=== PATIENT | female | born 1980 | race African-American/Black ===

== ENCOUNTER 2017-01-07 08:39 | Emergency (ER) | payer BC, OTHER ==
[~2017-01-07] VITALS: Ht 172.7 cm; Wt 79.4 kg
[2017-01-07 09:41] LABS: EOSINOPHIL (%) 3.1 % (0-5); EOSINOPHIL COUNT 0.2 K/uL (0-0.3); HEMATOCRIT 39.9 % (36.0-46.0); IMMATURE GRANULOCYTE (%) 0.2 % (0.0-0.7); INSTRUMENT ABS NEUTROPHIL CT 3.5 K/uL; LYMPHOCYTE COUNT 1.5 K/uL (1.0-2.8); MCH 29.3 PG (29.0-34.0); MCHC 33.6 G/DL (30.0-36.0); MCV 87.1 FL (83-99); MONOCYTE (%) 6.7 % (3-12); MONOCYTE COUNT 0.4 K/uL (0-0.8); NEUTROPHIL (%) 62.1 % (45-76); NEUTROPHIL COUNT 3.5 K/uL (1.8-6.4); PLATELET COUNT 220 K/uL (156-360); RBC DIS.WIDTH-CV 13.1 % (11.8-14.6); RBC DIS.WIDTH-SD 40.9 % (39-53); RED BLOOD COUNT 4.58 M/uL (3.80-5.20); WHITE BLOOD COUNT 5.6 K/uL (4.1-10.2)
[2017-01-07 09:53] LABS: CHLORIDE 108 mEq/L (99-109); SODIUM 140 mEq/L (136-147)
[2017-01-07 09:55] LABS: GLUCOSE 92 mg/dL (70-99)
[2017-01-07 09:56] LABS: ANION GAP 7 MEQ/L (2-14)
[2017-01-07 09:59] LABS: GFR ESTIMATE (CALCULATED) > 59 mL/min/; UREA NITROGEN (BUN) 10 mg/dL (9-23)
[2017-01-07 10:07] LABS: QUANTITATIVE HCG 8402.6 MIU/ML
[2017-01-07 10:15] LABS: ADD MIUA? YES; BILIRUBIN NEGATIVE; BLOOD LARGE; COLOR STRAW ((YELLOW)); GLUCOSE (STRIP) NEGATIVE; KETONES NEGATIVE; LEUKOCYTES NEGATIVE; NITRITE NEGATIVE; PROTEIN (STRIP) NEGATIVE; SPECIFIC GRAVITY 1.008 (1.000-1.030); UROBILINOGEN 0.2 MG/DL (0.2-1.0)
[2017-01-07 10:20] LABS: BACTERIA NONE SEEN /HPF; EPITHELIAL CELLS RARE /HPF; MUCUS NONE SEEN /LPF; RED BLOOD CELLS 0-5 /HPF (0-5); WHITE BLOOD CELLS 0-5 /HPF (0-5)
[2017-01-07 14:09] VITALS: BP 125/92
== END 2017-01-07 14:10 | disposition home or self-care (01) ==
LOC: EME 08:39
PROVIDERS: Emergency Medicine
DX: O26.851 Spotting complicating pregnancy, first trimester (principal); R10.30 Lower abdominal pain, unspecified; R10.2 Pelvic and perineal pain; O09.521 Supervision of elderly multigravida, first trimester
CPT/HCPCS: 76801; 80048; 81003; 84702; 85025; 86900; 86901; 93005; 99281; 99285

== ENCOUNTER 2017-01-15 16:39 | Emergency (ER) | payer OTHER ==
[~2017-01-15] VITALS: Ht 160 cm; Wt 79.4 kg
[2017-01-15 17:13] LABS: ADD MIUA? YES; BILIRUBIN NEGATIVE; BLOOD SMALL; COLOR YELLOW ((YELLOW)); GLUCOSE (STRIP) NEGATIVE; KETONES NEGATIVE; LEUKOCYTES TRACE; NITRITE NEGATIVE; PROTEIN (STRIP) NEGATIVE; SPECIFIC GRAVITY 1.017 (1.000-1.030); UROBILINOGEN 0.2 MG/DL (0.2-1.0)
[2017-01-15 17:16] LABS: BACTERIA NONE SEEN /HPF; EPITHELIAL CELLS RARE /HPF; MUCUS NONE SEEN /LPF; RED BLOOD CELLS 0-5 /HPF (0-5); UCUL ADDED? NO; WHITE BLOOD CELLS 0-5 /HPF (0-5)
[2017-01-15 17:23] LABS: HEMATOCRIT 37.9 % (36.0-46.0); MCH 28.9 PG (29.0-34.0); MCV 87.7 FL (83-99); MEAN PLAT.VOLUME 10.4 uM^3 (9.5-12.4); PLATELET COUNT 230 K/uL (156-360); RBC DIS.WIDTH-CV 12.9 % (11.8-14.6); RBC DIS.WIDTH-SD 41.5 % (39-53); RED BLOOD COUNT 4.32 M/uL (3.80-5.20); WHITE BLOOD COUNT 4.7 K/uL (4.1-10.2)
[2017-01-15 17:33] LABS: CHLORIDE 109 mEq/L (99-109); POTASSIUM 3.5 mEq/L (3.7-5.4); SODIUM 141 mEq/L (136-147)
[2017-01-15 17:35] LABS: GLUCOSE 80 mg/dL (70-99)
[2017-01-15 17:37] LABS: ANION GAP 12 MEQ/L (2-14); TOTAL BILIRUBIN 0.6 mg/dL (0.0-1.0)
[2017-01-15 17:39] LABS: ALKALINE PHOSPHATASE 55 IU/L (3-129); GFR ESTIMATE (CALCULATED) > 59 mL/min/
[2017-01-15 17:40] LABS: UREA NITROGEN (BUN) 15 mg/dL (9-23)
[2017-01-15 17:48] LABS: QUANTITATIVE HCG 197.5 MIU/ML
[2017-01-15 21:59] VITALS: BP 140/100
== END 2017-01-15 22:05 | disposition home or self-care (01) ==
LOC: EME 16:39
DX: M25.561 Pain in right knee (principal); O03.9 Complete or unspecified spontaneous abortion without complication; I10 Essential (primary) hypertension
CPT/HCPCS: 73564; 80053; 81003; 84702; 85027; 93971; 99281; 99284

== ENCOUNTER 2017-05-13 11:25 | Emergency (ER) | payer OTHER ==
[~2017-05-13] VITALS: Ht 167.6 cm; Wt 82.5 kg
[2017-05-13] MEDS ORDERED: VENTOLIN HFA18 GM IH (14:07)
[2017-05-13] MEDS ORDERED: FLONASE16 G1 BOTH NARES (14:08)
[2017-05-13 14:21] VITALS: BP 121/83
== END 2017-05-13 14:22 | disposition home or self-care (01) ==
LOC: EME 11:25
DX: O99.89 Other specified diseases and conditions complicating pregnancy, childbirth and the puerperium (principal); J06.9 Acute upper respiratory infection, unspecified; O99.511 Diseases of the respiratory system complicating pregnancy, first trimester; J32.9 Chronic sinusitis, unspecified; O16.1 Unspecified maternal hypertension, first trimester; Z3A.11 11 weeks gestation of pregnancy
CPT/HCPCS: 99281; 99284

== ENCOUNTER 2017-11-07 17:09 | Inpatient (IN) | payer OTHER ==
[2017-11-07 17:05] VITALS: BP 142/80
[~2017-11-07 17:09] MED LIST: FLONASE16 G1 BOTH NARES; VENTOLIN HFA18 GM IH
[2017-11-07] MEDS ORDERED: ASPIRIN325 MG PO (18:07)
[2017-11-07] MEDS ORDERED: TYLENOL REGULA325 MG PO (18:08)
[2017-11-07] MEDS ORDERED: ONE DAILY WITH1 EACH PO (18:11)
[2017-11-07 18:20] LABS: BASOPHIL (%) 0.4 % (0-1); EOSINOPHIL COUNT 0.1 K/uL (0-0.3); HEMOGLOBIN 9.8 G/DL (11.9-15.5); IMMATURE GRANULOCYTE (%) 0.4 % (0.0-0.7); LYMPHOCYTE COUNT 1.2 K/uL (1.0-2.8); MCH 25.8 PG (29.0-34.0); MCHC 31.6 G/DL (30.0-36.0); MCV 81.6 FL (83-99); MONOCYTE (%) 9.2 % (3-12); MONOCYTE COUNT 0.7 K/uL (0-0.8); PLATELET COUNT 257 K/uL (156-360); RBC DIS.WIDTH-CV 13.7 % (11.8-14.6); RBC DIS.WIDTH-SD 40.2 % (39-53); WHITE BLOOD COUNT 8.1 K/uL (4.1-10.2)
[2017-11-07 18:24] VITALS: BP 139/82
[2017-11-07 18:30] LABS: ALBUMIN 3.2 G/DL (3.2-4.8); CHLORIDE 106 MEQ/L (99-109); POTASSIUM 3.4 MEQ/L (3.7-5.4); SODIUM 138 MEQ/L (136-147); TOTAL BILIRUBIN 0.5 MG/DL (0.0-1.0)
[2017-11-07 18:35] LABS: ALKALINE PHOSPHATASE 141 IU/L (3-129); ALT (GPT) 8 IU/L (3-49); AST (GOT) 12 IU/L (2-34); CREATININE 0.7 MG/DL (0.6-1.3); GFR ESTIMATE (CALCULATED) > 59 mL/min/; GLUCOSE 110 mg/dL (70-99); TOTAL PROTEIN 6.4 G/DL (6.4-8.3); UREA NITROGEN (BUN) 10 mg/dL (9-23)
[2017-11-07 19:18] LABS: APPEARANCE CLEAR ((CLEAR)); BILIRUBIN NEGATIVE; BLOOD NEGATIVE; COLOR STRAW ((YELLOW)); GLUCOSE (STRIP) NEGATIVE; KETONES NEGATIVE; LEUKOCYTES NEGATIVE; NITRITE NEGATIVE; PROTEIN (STRIP) NEGATIVE; SPECIFIC GRAVITY 1.006 (1.000-1.030); UCUL ADDED? NO; UROBILINOGEN 0.2 MG/DL (0.2-1.0)
[2017-11-07 20:11] VITALS: BP 151/97
[2017-11-07 20:43] VITALS: BP 142/94
[2017-11-07 21:05] VITALS: BP 161/96
[2017-11-07 23:35] VITALS: BP 124/81
[2017-11-08] VITALS (42 sets, daily range): BP systolic 114–167; BP diastolic 68–104
[2017-11-08 08:22] LABS: HEMATOCRIT 31.3 % (36.0-46.0); HEMOGLOBIN 10.1 G/DL (11.9-15.5); MCH 26.2 PG (29.0-34.0); MCHC 32.3 G/DL (30.0-36.0); MCV 81.1 FL (83-99); PLATELET COUNT 249 K/uL (156-360); RBC DIS.WIDTH-CV 13.9 % (11.8-14.6); RBC DIS.WIDTH-SD 40.5 % (39-53); RED BLOOD COUNT 3.86 M/uL (3.80-5.20); WHITE BLOOD COUNT 6.3 K/uL (4.1-10.2)
[2017-11-08 08:41] LABS: ALKALINE PHOSPHATASE 124 IU/L (3-129); ALT (GPT) 9 IU/L (3-49); AST (GOT) 14 IU/L (2-34); CHLORIDE 106 MEQ/L (99-109); CREATININE 0.5 MG/DL (0.6-1.3); GFR ESTIMATE (CALCULATED) > 59 mL/min/; GLUCOSE 106 mg/dL (70-99); POTASSIUM 3.8 MEQ/L (3.7-5.4); SODIUM 137 MEQ/L (136-147); TOTAL BILIRUBIN 0.7 MG/DL (0.0-1.0); TOTAL PROTEIN 5.8 G/DL (6.4-8.3); UREA NITROGEN (BUN) 7 mg/dL (9-23)
[2017-11-09] VITALS (12 sets, daily range): BP systolic 117–145; BP diastolic 69–93
[2017-11-09 06:45] LABS: BASOPHIL (%) 0.4 % (0-1); EOSINOPHIL (%) 2.6 % (0-5); EOSINOPHIL COUNT 0.2 K/uL (0-0.3); HEMATOCRIT 30.2 % (36.0-46.0); HEMOGLOBIN 9.7 G/DL (11.9-15.5); IMMATURE GRANULOCYTE (%) 0.4 % (0.0-0.7); LYMPHOCYTE (%) 18.8 % (15-42); LYMPHOCYTE COUNT 1.5 K/uL (1.0-2.8); MCH 25.8 PG (29.0-34.0); MCHC 32.1 G/DL (30.0-36.0); MCV 80.3 FL (83-99); MONOCYTE (%) 9.3 % (3-12); MONOCYTE COUNT 0.7 K/uL (0-0.8); NEUTROPHIL (%) 68.5 % (45-76); NEUTROPHIL COUNT 5.3 K/uL (1.8-6.4); PLATELET COUNT 219 K/uL (156-360); RBC DIS.WIDTH-SD 40.9 % (39-53); RED BLOOD COUNT 3.76 M/uL (3.80-5.20); WHITE BLOOD COUNT 7.8 K/uL (4.1-10.2)
[2017-11-10] VITALS (8 sets, daily range): BP systolic 134–157; BP diastolic 78–103
[2017-11-10] MEDS ORDERED: FERROUS SULFAT325 MG PO (09:20)
[2017-11-10] MEDS ORDERED: IBUPROFEN800 MG PO (09:42)
[2017-11-10] MEDS ORDERED: CAMILA0.35 MG PO (09:42)
[2017-11-11 04:00] VITALS: BP 140/89
[2017-11-11 07:02] VITALS: BP 131/72
[2017-11-11 11:08] VITALS: BP 136/79
[2017-11-11 14:53] VITALS: BP 126/73
[2017-11-11] MEDS ORDERED: NIFEDIPINE ER30 MG PO (16:43)
== END 2017-11-11 17:37 | disposition home or self-care (01) | DRG 775 ==
LOC: LDRP-OP 17:09 → 2WEST 17:10
PROVIDERS: Advanced Practice Midwife; Obstetrics & Gynecology
PROC: 3E0R3BZ Introduction of Anesthetic Agent into Spinal Canal, Percutaneous Approach (ICD-10-PCS; principal; 2017-11-08)
PROC: 10E0XZZ Delivery of Products of Conception, External Approach (ICD-10-PCS; principal; 2017-11-08)
PROC: 00HU33Z Insertion of Infusion Device into Spinal Canal, Percutaneous Approach (ICD-10-PCS; principal; 2017-11-08)
PROC: 3E033VJ Introduction of Other Hormone into Peripheral Vein, Percutaneous Approach (ICD-10-PCS; principal; 2017-11-08)
PROC: 10907ZC Drainage of Amniotic Fluid, Therapeutic from Products of Conception, Via Natural or Artificial Opening (ICD-10-PCS; principal; 2017-11-08)
DX: O14.14 Severe pre-eclampsia complicating childbirth (principal); O99.52 Diseases of the respiratory system complicating childbirth; Z3A.37 37 weeks gestation of pregnancy; Z37.0 Single live birth; J45.909 Unspecified asthma, uncomplicated; O99.02 Anemia complicating childbirth; O99.214 Obesity complicating childbirth; O09.523 Supervision of elderly multigravida, third trimester; D64.9 Anemia, unspecified; I10 Essential (primary) hypertension; Z68.27 Body mass index [BMI] 27.0-27.9, adult; E66.9 Obesity, unspecified
CPT/HCPCS: 80053; 81003; 82570; 82575; 83735; 84156; 84550; 85025; 85027; 86850; 86900; 86901; 94640; 94664; 94799; C1755; G0378; J3010; J3475; J7120